=== PATIENT | male | born 1940 ===

== ENCOUNTER 2016-10-20 11:29 | Emergency (ER) | payer MEDICARE ==
[2016-10-20] MEDS ORDERED: Diph,Pert(Acell),Tet Vac 0.5 ML SYR IM ONE (11:56)
[2016-10-20 12:01] LABS: BASO % 0.6 % (0-6); EOS % 1.7 % (0-6); GRAN % 72.8 % (47-80); HEMATOCRIT 42.4 % (42.0-52.0); HEMOGLOBIN 13.8 gm/dl (14.0-18.0); LYMPH % 13.9 % (16-45); MEAN CELL VOLUME 86.2 fl (81-97); MEAN CORPUSCULAR HGB CONC 32.5 g/dl (32-36); MEAN PLATELET VOLUME 9.5 fl (7.4-10.4); PLATELET COUNT 204 K/uL (130-400); RED BLOOD COUNT 4.92 M/uL (4.40-5.70); RED CELL DISTRIBUTION WIDTH 13.5 % (11.5-14.5); WHITE BLOOD COUNT W/O DIFF 6.6 K/uL (4.2-12.2)
[2016-10-20 12:15] LABS: BLOOD UREA NITROGEN 23 mg/dL (9-20); CREATININE 1.2 mg/dL (0.66-1.25); EST GLOMERULAR FILTRATION RATE > 60 ml/min; GLUCOSE,RANDOM 251 mg/dL (70-110)
[2016-10-20 12:26] LABS: CKMB 3.1 ug/L (0-6); TROPONIN I < 0.012 ng/mL (0.00-0.034)
--- NOTE | 2016-10-20 12:39 | Emergency Department Record ---
History of Present Illness - General Chief complaint: Head Injury Stated complaint: FALL/SYNCOPE Time Seen by Provider: 10/20/16 11:31 Mode of Arrival: Wheelchair - History of Present Illness Initial comments: Initially he tripped and hit his head and left arm with lots of abrasions on the arm, He then got up and passed out from pain and his other injuries and he came to the ED for evaluation. He presented to [facility] care and they brought him to the ED. Hard collar placed IV and labs drawn and CT scans ordered. Patient only using asa 81 mg per day. Talking appropriately and neuro exam is normal Onset/Timin -: Minutes(s) Mechanism of Injury: Mechanical fall Location: Temporal Loss of Consciousness: Yes Previous Trauma to this Area: No Place: Home Severity scale (1-10): 3 Quality: Aching Other Injuries: Laceration Context: On Aspirin Associated Symptoms: Syncope - Related Data Home Medications Medication Instructions Recorded Confirmed Last Taken Insulin Glargine,Hum.rec.anlog 30 units SQ DAILY 10/20/16 10/20/16 10/20/16 [Leigh Ann Huffman] 35 units Insulin Regular, Human [Humulin R] 3 unit SQ ASDIR 10/20/16 10/20/16 10/20/16 3 units Lisinopril 20 mg PO DAILY 10/20/16 10/20/16 10/20/16 20 mg Lovastatin 40 mg PO DAILY 10/20/16 10/20/16 10/20/16 40 mg Omeprazole 20 mg PO DAILY 10/20/16 10/20/16 10/20/16 20 mg Allergies/Adverse reactions: Allergies Allergy/AdvReac Type Severity Reaction Status Date / Time No Known Drug Allergies Allergy Verified 10/20/16 11:33 Travel Screening - Travel/Exposure Within Last 30 Days Have you traveled within the last 30 days?: No - Travel/Exposure Within Last Year Have you traveled outside the [place] in the last year?: No - Additonal Travel Details Have you been exposed to anyone with a communicable illness?: No Review of Systems Reviewed: No additional complaints except as noted below Constitutional: Reports: As per HPI. Denies: Chills, Fever, Malaise, Night sweats, Weakness, Weight change Eyes: Reports: As per HPI. Denies: Eye discharge, Eye pain, Photophobia, Vision change ENT: Reports: As per HPI. Denies: Congestion, Dental pain, Ear pain, Epistaxis , Hearing loss, Throat pain Respiratory: Reports: As per HPI. Denies: Cough, Dyspnea, Hemoptysis, Stridor, Wheezes Cardiovascular: Reports: As per HPI. Denies: Arrhythmia, Chest pain, Dyspnea on exertion, Edema, Murmurs, Orthopnea, Palpitations, Paroxysmal nocturnal dyspnea, Rheumatic Fever, Syncope Endocrine: Reports: As per HPI. Denies: Fatigue, Heat or cold intolerance, Polydipsia, Polyuria Gastrointestinal: Reports: As per HPI. Denies: Abdominal pain, Constipation, Diarrhea, Hematemesis, Hematochezia, Melena, Nausea, Vomiting Genitourinary: Reports: As per HPI. Denies: Dysuria, Frequency, Hematuria, Incontinence, Retention, Testicular pain, Testicular mass, Urgency Musculoskeletal: Reports: As per HPI. Denies: Arthralgia, Back pain, Gout, Joint swelling, Myalgia, Neck pain Skin: Reports: As per HPI. Denies: Bruising, Change in color, Change in hair/ nails, Lesions, Pruritus, Rash Neurological: Reports: As per HPI, Headache. Denies: Abnormal gait, Confusion, Numbness, Paresthesias, Seizure, Tingling, Tremors, Vertigo, Weakness Psychiatric: Reports: As per HPI. Denies: Anxiety, Auditory hallucinations, Depression, Homicidal thoughts, Suicidal thoughts, Visual hallucinations Hematological/Lymphatic: Reports: As per HPI. Denies: Anemia, Blood Clots, Easy bleeding, Easy bruising, Swollen glands Past Medical History - SOCIAL HISTORY Smoking Status: Never smoker Alcohol Use: None - RESPIRATORY Hx Respiratory Disorders: No - CARDIOVASCULAR Hx Cardio Disorders: No - NEURO Hx Neuro Disorders: No - GI Hx GI Disorders: Yes Hx Reflux: Yes - Hx Genitourinary Disorders: No - ENDOCRINE Hx Diabetes: Yes Comment:: only takes insulin - PSYCH Hx Psych Problems: No Family Medical History Any Significant Family History?: No Physical Exam - General General Appearance: Alert, Oriented x3, Cooperative, No acute distress - Head Head exam: Other (abrASIONS OVER THE LEFT EYEBROW.) - Eye Eye exam: Normal appearance, PERRL Pupils: Normal accommodation - ENT ENT exam: Normal exam, Mucous membranes moist, Normal external ear exam, Normal orophraynx, TM's normal bilaterally Ear exam: Normal external inspection. negative: External canal tenderness Nasal Exam: Normal inspection. negative: Discharge, Sinus tenderness Mouth exam: Normal external inspection, Tongue normal Teeth exam: Normal inspection. negative: Dental caries Throat exam: Normal inspection. negative: Tonsillar erythema, Tonsillar exudate - Neck Neck exam: Normal inspection, Full ROM. negative: Tenderness - Respiratory Respiratory exam: Normal lung sounds bilaterally. negative: Respiratory distress - Cardiovascular Cardiovascular Exam: Regular rate, Normal rhythm, Normal heart sounds - GI/Abdominal GI/Abdominal exam: Soft, Normal bowel sounds. negative: Tenderness - Rectal Rectal exam: Deferred - exam: Deferred - Extremities Extremities exam: Full ROM, Normal capillary refill, Other (MULTIPLE ABRASIONS AND SUPERFICIAL SKIN TEARS OF THE LEFT ARM NOTHING THAT CAN BE SUTURED). negative: Tenderness - Back Back exam: Reports: Normal inspection, Full ROM. Denies: Muscle spasm, Rash noted, Tenderness - Neurological Neurological exam: Alert, Normal gait, Oriented X3, Reflexes normal - Psychiatric Psychiatric exam: Normal affect, Normal mood - Skin Skin exam: Dry, Intact, Normal color, Warm Course Vital Signs 10/20/16 11:33 Temperature 97.7 F Pulse Rate [ 71 Pulse Ox Probe] Respiratory 18 Rate Blood Pressure 125/74 [Left Arm] Pulse Ox 98 Medical Decision Making - Data Complexity MDM Data: Labs Ordered and/or Reviewed, X-Ray Ordered and/or Reviewed (CT head negative and CT of neck no fractures seen) - Lab Data Result diagrams: 10/20/16 11:43 10/20/16 11:43 Lab Results 10/20/16 10/20/16 10/20/16 Range/Units 11:43 11:43 11:43 WBC 6.6 (4.2-12.2) K/uL RBC 4.92 (4.40-5.70) M/uL Hgb 13.8 L (14.0-18.0) gm/dl Hct 42.4 (42.0-52.0) % MCV 86.2 (81-97) fl MCH 28.0 (27-33) pg MCHC 32.5 (32-36) g/dl RDW 13.5 (11.5-14.5) % Plt Count 204 (130-400) K/uL MPV 9.5 (7.4-10.4) fl Gran % 72.8 (47-80) % Lymphocytes % 13.9 L (16-45) % Monocytes % 11.0 H (0-9) % Eosinophils % 1.7 (0-6) % Basophils % 0.6 (0-6) % APTT 29.40 (24.5-39.1) SECONDS Sodium 139 (136-145) mmol/L Potassium 4.7 (3.5-5.1) mmol/L Chloride 107 (98-107) mmol/L Carbon Dioxide 24.0 (22-30) mmol/L Anion Gap 8.0 (7-16) BUN 23 H (9-20) mg/dL Creatinine 1.2 (0.66-1.25) mg/dL Estimated GFR > 60 ml/min Random Glucose 251 H (70-110) mg/dL Calcium 8.8 (8.5-10.1) mg/dL Magnesium (1.6-2.3) mg/dL CK-MB (CK-2) (0-6) ug/L Troponin I (0.00-0.034) ng/mL Ethyl Alcohol 0.000 (0-0.010) g/dL 10/20/16 10/20/16 Range/Units 11:43 11:43 WBC (4.2-12.2) K/uL RBC (4.40-5.70) M/uL Hgb (14.0-18.0) gm/dl Hct (42.0-52.0) % MCV (81-97) fl MCH (27-33) pg MCHC (32-36) g/dl RDW (11.5-14.5) % Plt Count (130-400) K/uL MPV (7.4-10.4) fl Gran % (47-80) % Lymphocytes % (16-45) % Monocytes % (0-9) % Eosinophils % (0-6) % Basophils % (0-6) % APTT (24.5-39.1) SECONDS Sodium (136-145) mmol/L Potassium (3.5-5.1) mmol/L Chloride (98-107) mmol/L Carbon Dioxide (22-30) mmol/L Anion Gap (7-16) BUN (9-20) mg/dL Creatinine (0.66-1.25) mg/dL Estimated GFR ml/min Random Glucose (70-110) mg/dL Calcium (8.5-10.1) mg/dL Magnesium 1.9 (1.6-2.3) mg/dL CK-MB (CK-2) 3.1 (0-6) ug/L Troponin I < 0.012 (0.00-0.034) ng/mL Ethyl Alcohol (0-0.010) g/dL Disposition Clinical Impression: Abrasion, face w/o infection, Vasovagal episode Contusion of head Qualifiers: Encounter type: initial encounter Contusion of head detail: scalp Qualified Code(s): S00.03XA - Contusion of scalp, initial encounter Abrasion of arm, left Qualifiers: Encounter type: initial encounter Qualified Code(s): S40.812A - Abrasion of left upper arm, initial encounter Disposition: Home, Self-Care Condition: (1) Good Instructions: Head Injury (ED) Additional Instructions: follow up with family in one week head injury checks every 4 hours Forms: Patient Portal Access Time of Disposition: 12:47 Quality - Quality Measures Quality Measures: Minor Blunt Head Trauma - [place] Coma Scale Fannie Coma Scale: [place] Coma Scale Eye Response: (4) Open spontaneously Motor Response: (6) Obeys commands Verbal Response: (5) Oriented [place] Total: 15 - Blunt Head Trauma - Adult Quality Measure: Measure #415: Utilization of CT for Minor Blunt Head Trauma Patient Presented Within 24 Hours of Injury: Yes Utilization of CT for Minor Blunt Head Trauma: < CT Done, Appropriate Indication > [G9529] Additional Inclusion Criteria: Within 24hrs (AND) GCS of 15 (AND) CT ordered. [ G9530] Indications For CT: Age 65 Years and Older Valid Reason For CT: Taking Antiplatelet Med - Blood Pressure Screening Does Patient Have Any of the Following: No Blood Pressure Classification: Pre-Hypertensive BP Reading Systolic Measurement: 125 Diastolic Measurement: 74 Screening for High Blood Pressure: < Pre-Hypertensive BP, F/U Documented > [ G8950] Pre-Hypertensive Follow-up Interventions: Referral to alternative/primary care provider.
--- NOTE | 2016-10-21 10:00 | CT SCAN REPORT ---
EXAM: HEAD CT WITHOUT CONTRAST HISTORY: SYNCOPE, STRUCK LEFT SUPRAORBITAL AREA. TECHNIQUE: Contiguous axial images from the cerebral convexities to the foramen magnum were obtained without contrast. Comparison: None. Encounter: Initial. FINDINGS: Moderate generalized atrophy of the brain. No acute intracranial hemorrhage, mass effect, or midline shift. No CT evidence of acute infarct. The ventricles, basal cisterns and sulci are within normal limits. The osseous structures, soft tissues and paranasal sinuses are unremarkable. IMPRESSION: 1. NO ACUTE INTRACRANIAL PROCESS. 2. MODERATE GENERALIZED ATROPHY OF THE BRAIN. JOB NUMBER: [id number] MTDD
--- NOTE | 2016-10-21 10:43 | CT SCAN REPORT ---
EXAM: CERVICAL SPINE CT WITH TWO DIMENSIONAL REFORMATS HISTORY: SYNCOPE, STRUCK LEFT FRONTAL REGION, NECK PAIN. TECHNIQUE: Contiguous axial images from the skull base to the T1 level were obtained without contrast. Sagittal and coronal two dimensional reformatted images were obtained for better anatomic delineation. Comparison: None. Encounter: Initial. FINDINGS: Anatomic alignment of the cervical spine. The C1-C2 articulation appears appropriate and the odontoid is intact. No fracture or subluxation. Mild diffuse degenerative disk disease manifested by small end plate osteophytes. No narrowing of the osseous central canal at any level. Mild to moderate facet and uncovertebral joint hypertrophy throughout. Moderate left neural foraminal stenosis at C5-C6 due to facet and uncovertebral joint hypertrophy. Minimal neural foraminal stenosis at the remaining levels. The soft tissues of the cervical region demonstrate moderate calcification of the carotid bulbs. The lung apices are clear. IMPRESSION: 1. NO ACUTE FRACTURE OR SUBLUXATION OF THE CERVICAL SPINE. 2. MILD DEGENERATIVE DISK DISEASE THROUGHOUT. 3. MULTIPLE LEVELS OF NEURAL FORAMINAL STENOSIS MOST PRONOUNCED AT C5-C6 ON THE LEFT. JOB NUMBER: [id number] [facility]
== END 2016-10-20 13:11 | disposition home or self-care (01) ==
LOC: ER 11:29
DX: S00.03XA Contusion of scalp, initial encounter (principal); S40.812A Abrasion of left upper arm, initial encounter; S00.212A Abrasion of left eyelid and periocular area, initial encounter; R55 Syncope and collapse; M54.2 Cervicalgia; E11.9 Type 2 diabetes mellitus without complications; Z79.4 Long term (current) use of insulin; W01.10XA Fall on same level from slipping, tripping and stumbling with subsequent striking against unspecified object, initial encounter; Y92.009 Unspecified place in unspecified non-institutional (private) residence as the place of occurrence of the external cause
CPT/HCPCS: 70450; 72125; 80048; 80320; 82553; 83735; 84484; 85025; 85730; 90715; 93005; 93010; 96372; 99284